=== PATIENT | female | born 1985 | race Caucasian/White ===

== ENCOUNTER 2016-12-29 13:52 | Day surgery (SDC) | payer OTHER ==
[2016-12-29 14:23] LABS: BASOPHIL 0.5 % (0-2.0); EOSINOPHIL 0.4 % (0-4.5); MCH 30.7 pg (25.7-33.7); MCHC 34.2 g/dl (32.0-36.0); MEAN CELL VOLUME 89.8 fl (80-96); MEAN PLT VOLUME 8.4 fl (7.5-11.1); NEUTROPHILS 72.1 % (42.8-82.8); PLATELET COUNT 234 K/MM3 (134-434); RDW 13.7 % (11.6-15.6); WHITE BLOOD COUNT 9.5 K/mm3 (4.0-10.0)
[2016-12-29 14:38] VITALS: BMI 26.8
[2016-12-29 15:16] LABS: INR 1.1 (0.82-1.09); PROTHROMBIN TIME (PATIENT) 12.1 SEC (9.98-11.88)
--- NOTE | 2016-12-29 16:45 | HP ---
Past Medical History - Primary Care Physician PCP:: Arlette Zhao - Admission Chief Complaint: p, 8.4/7 weeks [id number] yrs , 12.2 wekes by dates , co bleeding vaginally. since 12/26/16, light, sometimes passed small blood clots . no Cramps. sono done on 12/28/16 is reported as SIUP 8.4/7 weeks, , pole seen without cardiac activity . cx is 3.35 cm History of Present Illness: pnc at [address] [place] [address] . work up on 12/17/16 : O Pos,Rpr nr, , Hgb A1A2 , Hbsag neg, Rubella immune, Cf neg, Hiv nr. 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 Weeks Gestation by Dates: 12.2 ...EDC by Dates: 07/11/17 Heme/Onc: No: Anemia Infectious Disease: No: HIV, MRSA, STD's Psych: No: Addictions, Anxiety, Bipolar, Depression - Past Surgical History Past Surgical History: Yes: None Hx Myomectomy: No Hx Transabdominal Cerclage: No - Smoking History Smoking history: Never smoked Have you smoked in the past 12 months: No - Alcohol/Substance Use Hx Alcohol Use: No History of Substance Use: reports: None - Social History History of Recent Travel: No Home Medications - Allergies Allergies/Adverse Reactions: Allergies Allergy/AdvReac Type Severity Reaction Status Date / Time No Known Drug Allergies Allergy Verified 12/29/16 14:53 - Home Medications Home Medications: Ambulatory Orders Iron 18 mg PO DAILY 12/29/16 Vit/Iron Fumarate/FA [ Tablet] 1 each PO DAILY 12/29/16 Physical Exam - Maternity Vital Signs: Vital Signs Temperature 98.3 F 12/29/16 14:56 Pulse Rate 100 H 12/29/16 14:56 Respiratory Rate 20 12/29/16 14:56 Blood Pressure 123/70 12/29/16 14:56 O2 Sat by Pulse Oximetry (%) 99 12/29/16 14:55 Constitutional: Yes: Well Nourished, Other (upset) Eyes: Yes: WNL HENT: Yes: WNL, Normocephalic Neck: Yes: WNL Cardiovascular: Yes: WNL Lungs: Clear to auscultation Breast(s): Yes: WNL - Abdominal Exam/OB Fundal Height: 8 Number of Fetuses: Single - Vaginal Exam/OB Vaginal Bleediing: Light Dilatation (cm): close Effacement (%): unefface - Physical Exam Musculoskeletal: Yes: WNL Extremities: Yes: WNL. No: Calf Tenderness Edema: No Integumentary: Yes: WNL Deep Tendon Reflex Grade: Normal +2 ...Motor Strength: WNL Psychiatric: Yes: WNL, Alert, Oriented - Labs Lab Results: CBC, BMP 12/29/16 14:14 Laboratory Tests 12/29/16 14:14 Blood Type O POSITIVE Laboratory Tests 12/29/16 14:14 INR 1.10 Problem List - Problems (1) Missed Code(s): O02.1 - MISSED (2) with 12 completed weeks gestation Code(s): Z3A.12 - 12 WEEKS GESTATION OF Assessment/Plan 31 yrs , 12.2 weeks by dates, 8.4 weeks by sono non viable foetus (absent FHR ) on sono is admitted for Dilatation suction curretage under GA.
[2016-12-29] MEDS ORDERED: PROPOFOL 20 ML ONE (17:32)
[2016-12-29] MEDS ORDERED: MIDAZOLAM HCL 2 MG/2 ML SINGLE DOSE VIAL ONE (17:32)
[2016-12-29] MEDS ORDERED: OXYTOCIN 10 UNITS/ML VIAL ONE (17:42)
[2016-12-29] MEDS ORDERED: SILVER NITRATE 75% APPLIC STCK 1 PKT EACH TP ONE ×2 (17:54)
--- NOTE | 2016-12-29 18:05 | OP ---
Operative Note - Note: Operative Date: 12/29/16 Pre-Operative Diagnosis: missed (1st trimester) Operation: Dilatation Suction Curretage Findings: Ut 8 weeks size, AV, uterocervical length 9cm 9#suction canula was used to aspirate iu contents . cx post , os was closed adnexa was quill collector Surgeon: Arlette Zhao Anesthesiologist/MEDICAL ASSOCIATE: Tito Barcenas Anesthesia: General Specimens Removed: uterine contents Estimated Blood Loss (mls): 50 Fluid Volume Replaced (mls): 500 (RL Solution, Pitocin 20 Iu was used ) Operative Report Dictated: Yes
[2016-12-29] MEDS ORDERED: ONDANSETRON 4 MG/2 ML VIAL IVPUSH PRN (18:11)
[2016-12-29] MEDS ORDERED: oxyCODONE HCL 5 MG TABLET PO PRN (18:11)
[2016-12-29] MEDS ORDERED: IBUPROFEN 400 MG TABLET (FP) PO PRN (18:12)
[2016-12-29] MEDS ORDERED: ACETAMINOPHEN 325 MG TABLET (FP) PO PRN (18:12)
[2016-12-29] MEDS ORDERED: LACTATED RINGERS SOLUTION 1,000 ML IV SCH (18:15)
[2016-12-29 18:51] VITALS: TEMP 98
[2016-12-29 19:50] VITALS: BP 106/60; PULSE 80
--- NOTE | 2016-12-31 12:29 | PATH ---
Surgical Pathology Report Patient Name: SERVANDO KING [facility]. Rec. #: [id number] /Age/Gender: 1985 (Age: 31) / F Account: [id number] Location: AMBULATORY SURG Taken: 12/29/2016 Received: 12/30/2016 Reported: 12/31/2016 Physicians: Arlette Zhao M.D. Specimen(s) Received UTERINE CONTENTS Clinical History Missed first trimester Final Diagnosis PRODUCTS OF CONCEPTION: NO SOMATIC TISSUE IDENTIFIED. CHORIONIC VILLUS TISSUE PRESENT. FRAGMENTS OF DECIDUA. Electronically Signed Josué Faustin M.D. Gross Description Received in formalin labeled "contents of conception" is a 7.5 x 5.5 x 1.8 cm aggregate of almeida soft tissue fragments. Villous tissue is grossly identified. No somatic tissue is grossly identified. A telemarketing representative portion is submitted in one cassette. /12/30/201612/30/2016
--- NOTE | 2017-01-07 18:01 | OP ---
DATE OF OPERATION: 12/29/2016 OPERATION: Dilatation/suction curettage. PREOPERATIVE DIAGNOSIS: Missed , 12.2 weeks' gestation. SURGEON: Arlette Zhao MD ANESTHESIOLOGIST: Teressa Barcenas MD ANESTHESIA: General. FINDINGS: This is a 31-year-old 1, para 0, LMP on October 04, 2016, 12.2 weeks' gestation. Had been having severe bleeding since December 26, 2016. On December 28, 2016, a sonogram reported as 8.4 weeks with absent heart and with a pole seen. PROCEDURE: Patient was taken to the operating room table and general anesthesia was given. Patient was placed in the lithotomy position. Pubis, perineum, vagina were painted with a Betadine prep in usual manner. Pelvic examination was done. Uterus was anteverted, 8 weeks' size. Cervix was posterior. Adnexa was not palpable. A weighted speculum was placed anteriorly. The cervix was grasped with a single-toothed tenaculum and dilated up to a number 10 dilator. A number 9 curved cannula was used and the uterine contents were aspirated out until no more tissue was obtained. The cannula was then removed. The uterine cavity was curetted and sent for pathologic examination. The curetting was done until a gritty sensation was felt. All the instruments were removed, and the bleeding point from the tenaculum by site. Hemostasis was achieved by using silver nitrate cautery. Estimated blood loss was 50 mL. Patient tolerated the procedure well and was transferred to the recovery room in stable condition. Her blood type is O+. Nila HONG/[id number]
== END 2016-12-29 19:51 | disposition home or self-care (01) ==
LOC: JASU-SURG 13:52 → JASUSAT 13:52
PROVIDERS: ATTEND Obstetrics & Gynecology
PROC: 10D17ZZ Extraction of Products of Conception, Retained, Via Natural or Artificial Opening (ICD-10-PCS; principal; 2016-12-29 16:00)
DX: O02.1 Missed abortion (principal); Z3A.08 8 weeks gestation of pregnancy
CPT/HCPCS: 36415; 85025; 85610; 86850; 86900; 86901; 88305-TC; 94760

== ENCOUNTER 2018-04-21 15:18 | Emergency (ER) | payer OTHER ==
--- NOTE | 2018-04-21 15:24 | PDOC ---
Rapid Medical Evaluation Time Seen by Provider: 04/21/18 15:20 Medical Evaluation: Allergies Allergy/AdvReac Type Severity Reaction Status Date / Time No Known Drug Allergies Allergy Verified 12/29/16 14:53 04/21/18 15:20 Pt. presents to the ED for vaginal bleeding, currently 10 weeks . , LMP 02/04/18. States the bleeding started today and she noticed a little light blood on the toilet paper. No clots. Also admits to back pain. Denies fever, chills, n/v/d, frequency, urgency and hematuria Exam: AAOx3, ambulatory. abdomen soft nt, no rebound or guarding. Orders: Labs, Urine, US Pt to proceed to main ED for further evaluation. Discharge Disposition - Diagnosis Vaginal bleeding - Referrals - Patient Instructions - Post Discharge Activity
[2018-04-21 15:25] VITALS: BP 125/59; PULSE 86; TEMP 98.6; BMI 29.9
[2018-04-21 15:46] LABS: BASO % 0.3 % (0-2.0); EOS % 0.2 % (0-4.5); HEMATOCRIT 37.6 % (32.4-45.2); LYMPH % 19.6 % (8-40); MCH 30.3 pg (25.7-33.7); MCHC 34.6 g/dl (32.0-36.0); MEAN CELL VOLUME 87.5 fl (80-96); MEAN PLT VOLUME 9.6 fl (7.5-11.1); MONO % 7.3 % (3.8-10.2); NEUT % 72.6 % (42.8-82.8); PLATELET COUNT 230 K/MM3 (134-434); RDW 13.7 % (11.6-15.6); URINE APPEARANCE SLCLOUDY; URINE BILIRUBIN NEGATIVE (<2.0 mg/dL); URINE GLUCOSE (UA) NEGATIVE (NEGATIVE); URINE KETONE 1+ (NEGATIVE); URINE LEUK ESTERASE NEGATIVE (NEGATIVE); URINE NITRITE NEGATIVE (NEGATIVE); URINE PROTEIN NEGATIVE (NEGATIVE); WHITE BLOOD COUNT 8.3 K/mm3 (4.0-10.0)
[2018-04-21 15:52] LABS: URINE COLOR YELLOW
--- NOTE | 2018-04-21 16:47 | PDOC ---
Attending Attestation - HPI HPI: 04/21/18 17:06 The patient is a 32 year old female who is A1 who presents to the ED complaining of a small amount of vaginal bleeding this morning. States she noticed a small amount of blood while urinating when she wiped. She also reports nausea with vomitinig x 2 today but is able to tolerate fluids. Denies appearance of clots. She denies suprapubic cramping. She denies fever or chills. States her symptoms feel similar to previous miscarriage. - Physicial Exam PE: 04/21/18 17:16 Constitutional: Awake, alert, oriented. No acute distress. Head: Normocephalic. Atraumatic Eyes: PERRL. EOMI. Conjunctivae are not pale. ENT: Mucous membranes are moist and intact. Posterior pharynx without exudates or erythema. Uvula midline. Neck: Supple. Full ROM. No lymphadenopathy. Cardiovascular: Regular rate. Regular rhythm. S1, S2 regular. Distal pulses are 2+ and symmetric. Pulmonary/Chest: No evidence of respiratory distress. Clear to auscultation bilaterally No wheezing, rales or rhonchi. Abdominal: Soft and non-distended. There is no tenderness. No rebound, guarding or rigidity. No organomegaly. No palpable masses. Good bowel sounds. Back: No CVA tenderness. Musculoskeletal: No edema. No cyanosis. No clubbing. Full range of motion in all extremities. Nocalf tenderness. Radial/pedal pulses are intact and 2+ bilaterally Skin: Skin is warm and dry. No petechiae. No purpura. Neurological: Alert and oriented to person, place, and time. Cranial nerves II -XII are grossly intact. Normal speech. Strength is grossly symmetric. No sensory deficits. Psychiatric: Good eye contact. Normal interaction, affect and behavior. Pelvic exam: Agree with resident note Documentation prepared by Parul Washington, acting as medical lab technologist for Abimbola Blanca DO. <Parul Washington - Last Filed: 04/21/18 17:06> - Resident Resident Name: Gadiel Campbell - ED Attending Attestation I have performed the following: I have examined & evaluated the patient, The case was reviewed & discussed with the resident, I agree w/resident's findings & plan, Exceptions are as noted - Medical Decision Making 04/21/18 16:46 I, Dr. Abimbola Blanca, DO, attest that this document has been prepared under my direction and personally reviewed by me in its entirety. I further attest, that it accurately reflects all work, treatment, procedures and medical decision -making performed by me. 04/21/18 18:46 a/p: 32yo female with vaginal spotting today - at 10 weeks -no active bleeding, blood on tissue when she wiped earlier today -no cramping -has not had a us with this preg -miscarriage a year ago (spontaneous) at 8 weeks -will send labs, type and screen, tv us -concern for threatened ab vs bleeding in early preg 04/22/18 00:24 10week IUP on ultrasound 04/22/18 00:24 O+ stable for d/c to home <Abimbola Blanca - Last Filed: 04/22/18 00:24>
[2018-04-21] MEDS ORDERED: ONDANSETRON 4 MG TABLET PO ONE (17:37)
--- NOTE | 2018-04-21 17:43 | PDOC ---
History of Present Illness - General Chief Complaint: Vaginal Bleeding Stated Complaint: BACK PAIN, BLEEDING (10 WKS ) Time Seen by Provider: 04/21/18 15:20 History Source: Patient Exam Limitations: No Limitations - History of Present Illness Initial Comments: 04/21/18 17:37 Patient is a 32F who is 10wks here today complaining of vaginal bleeding. She states that after urinating, she noticed a small amount of blood whens he wiped with tissue paper. She endorses associated nausea that has complicated her so far. Denies abdominal pain, fevers, chills and pain with urination. Patient states that she has not had ultrasound yet for this and is concerned that she is having another miscarriage. Past History - Past Medical History Allergies/Adverse Reactions: Allergies Allergy/AdvReac Type Severity Reaction Status Date / Time No Known Drug Allergies Allergy Verified 04/21/18 15:22 Home Medications: Ambulatory Orders Ibuprofen [Motrin -] 400 mg PO TID #30 tablet 12/29/16 Iron 18 mg PO DAILY 12/29/16 Vit/Iron Fum/Folic AC [ Tablet] 1 each PO DAILY 12/29/16 COPD: No - Suicide/Smoking/Psychosocial Hx Smoking History: Never smoked Have you smoked in the past 12 months: No Hx Alcohol Use: No Drug/Substance Use Hx: No Substance Use Type: None Hx Substance Use Treatment: No Review of Systems - Review of Systems Comments:: 04/21/18 17:39 GENERAL/CONSTITUTIONAL: No fever or chills. No weakness. HEAD, EYES, EARS, NOSE AND THROAT: No change in vision. No sore throat. CARDIOVASCULAR: No chest pain or shortness of breath RESPIRATORY: No cough, wheezing, or hemoptysis. GASTROINTESTINAL: No nausea, vomiting, diarrhea or constipation. GENITOURINARY: No dysuria, frequency, or change in urination. MUSCULOSKELETAL: No joint or muscle swelling or pain. No neck or back pain. SKIN: No rash NEUROLOGIC: No headache, vertigo, loss of consciousness, or change in strength/ sensation. ENDOCRINE: No increased thirst. No abnormal weight change HEMATOLOGIC/LYMPHATIC: No anemia, easy bleeding, or history of blood clots. ALLERGIC/IMMUNOLOGIC: No hives or skin allergy. *Physical Exam - Vital Signs Last Vital Signs Temp Pulse Resp BP Pulse Ox 98.6 F 86 16 125/59 100 07/26/18 15:22 04/21/18 15:22 04/21/18 15:22 04/21/18 15:22 04/21/18 15:22 - Physical Exam Comments: 04/21/18 17:39 GENERAL: Awake, alert, and fully oriented, in no acute distress HEAD: No signs of trauma, normocephalic, atraumatic EYES: PERRLA, EOMI, sclera anicteric, conjunctiva clear ENT: Auricles normal inspection, hearing grossly normal, nares patent, oropharynx clear without exudates. Moist mucosa NECK: Normal ROM, supple, no lymphadenopathy, JVD, or masses LUNGS: No distress, speaks full sentences, clear to auscultation bilaterally HEART: Regular rate and rhythm, normal S1 and S2, no murmurs, rubs or gallops, peripheral pulses normal and equal bilaterally. ABDOMEN: Soft, nontender, normoactive bowel sounds. No guarding, no rebound. No masses EXTREMITIES: Normal inspection, Normal range of motion, no edema. No clubbing or cyanosis. NEUROLOGICAL: Cranial nerves II through XII grossly intact. Normal speech, normal gait, no focal sensorimotor deficits SKIN: Warm, Dry, normal turgor, no rashes or lesions noted. ED Treatment Course - LABORATORY CBC & Chemistry Diagram: 04/21/18 15:37 - ADDITIONAL ORDERS Additional order review: Laboratory Results 04/21/18 04/21/18 04/21/18 15:37 15:37 15:37 Beta HCG, Quant 53866.8 Urine Color Yellow Urine Appearance Slcloudy Urine pH 5.0 Ur Specific [place] 1.023 Urine Protein Negative Urine Glucose (UA) Negative Urine Ketones 1+ H Urine Blood Negative Urine Nitrite Negative Urine Bilirubin Negative Urine Urobilinogen 2.0 H Ur Leukocyte Esterase Negative Blood Type O POSITIVE Antibody Screen Negative 04/21/18 15:37 RBC 4.30 MCV 87.5 MCHC 34.6 RDW 13.7 MPV 9.6 D Neutrophils % 72.6 Lymphocytes % 19.6 Monocytes % 7.3 Eosinophils % 0.2 Basophils % 0.3 Medical Decision Making - Medical Decision Making 04/21/18 17:39 Patient is 32F at 10 wks here today complaining of vaginal bleeding. Vital signs normal and stable. Pelvic deferred due to small amount of bleeding and no other pelvic complaints. Will rule out ectopic, rule out need for rhogam, establish . 04/21/18 17:43 Laboratory Tests 04/21/18 04/21/18 04/21/18 15:37 15:37 15:37 WBC 8.3 Hgb 13.0 Plt Count 230 Beta HCG, Quant 94609.8 Urine Nitrite Negative Ur Leukocyte Esterase Negative CBC normal. Beta quant positive. UA negative for infection. 04/21/18 17:43 O+, no rhogam needed. *DC/Admit/Observation/Transfer Diagnosis at time of Disposition: Vaginal bleeding, Threatened - Discharge Dispostion Disposition: HOME Condition at time of disposition: Good Decision to Admit order: No - Referrals - Patient Instructions Printed Discharge Instructions: DI for Threatened Additional Instructions: Please return to the ED in 2 days for repeat blood test. Please return to the ED if you have any new, worsening or concerning symptoms. Please follow up with your OBGYN in the next week. Print Language: MALAGASY - Post Discharge Activity
[2018-04-21] MEDS ORDERED: ONDANSETRON *ODT* 4 MG TABLET ONE (19:31)
== END 2018-04-21 19:35 | disposition home or self-care (01) ==
LOC: JER 15:18
DX: O26.891 Other specified pregnancy related conditions, first trimester (principal); O20.0 Threatened abortion; Z3A.10 10 weeks gestation of pregnancy
CPT/HCPCS: 36415; 76817-TC; 81003; 84702; 85025; 86850; 86900; 86901; 87086; 99283-25

== ENCOUNTER 2018-04-23 09:20 | Emergency (ER) | payer OTHER ==
[2018-04-23 09:28] VITALS: BP 101/59; PULSE 79; TEMP 98.5; BMI 29.9
--- NOTE | 2018-04-23 10:36 | PDOC ---
History of Present Illness - General Chief Complaint: Revisit, Lab Variance Stated Complaint: REVISIT (BLOOD WORK) Time Seen by Provider: 04/23/18 09:36 History Source: Patient Exam Limitations: No Limitations - History of Present Illness Initial Comments: 04/23/18 10:31 32 yr female here for repeat beta HCG, seen 2 days ago in ER . transvaginal showed conformed IUP with small subchorionic bleed. Pt has no bleeding or pain today. 04/23/18 10:34 Past History - Past Medical History Allergies/Adverse Reactions: Allergies Allergy/AdvReac Type Severity Reaction Status Date / Time No Known Drug Allergies Allergy Verified 04/23/18 09:28 Home Medications: Ambulatory Orders Ibuprofen [Motrin -] 400 mg PO TID #30 tablet 12/29/16 Iron 18 mg PO DAILY 12/29/16 Vit/Iron Fum/Folic AC [ Tablet] 1 each PO DAILY 12/29/16 COPD: No - Suicide/Smoking/Psychosocial Hx Smoking History: Never smoked Have you smoked in the past 12 months: No Hx Alcohol Use: No Drug/Substance Use Hx: No Substance Use Type: None Hx Substance Use Treatment: No Review of Systems - Review of Systems Able to Perform ROS?: Yes Is the patient limited Czech proficient: Yes Constitutional: No: Symptoms Reported HEENTM: No: Symptoms Reported Respiratory: No: Symptoms reported Cardiac (ROS): No: Symptoms Reported ABD/GI: No: Symptoms Reported : No: Symptoms Reported Musculoskeletal: No: Symptoms Reported *Physical Exam - Vital Signs Last Vital Signs Temp Pulse Resp BP Pulse Ox 98.5 F 79 18 101/59 99 04/23/18 09:25 04/23/18 09:25 04/23/18 09:25 04/23/18 09:25 04/23/18 09:25 - Physical Exam General Appearance: Yes: Nourished, Appropriately Dressed HEENT: positive: EOMI, TERESA Female Pelvic Exam: positive: other (deferred ) Gastrointestinal/Abdominal: positive: Normal Bowel Sounds, Soft. 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 II-XII NML intact, Fully Oriented, Alert, Normal Mood/ Affect ED Treatment Course - ADDITIONAL ORDERS Additional order review: Laboratory Results 04/23/18 09:37 Beta HCG, Quant 00885.8 Medical Decision Making - Medical Decision Making 04/23/18 10:38 cc: here for repeat beta HCG pt has no bleeding, no spotting no abd pain pt has appointment with truck terminal manager Coral on Wednesday for follow up I have given the pateint a copy of [facility] lab work to bring with her (she has copies of US and blood form last visit with her) I have discussed in detail the dc inst and when to return to ER to her and her partner who translated, the BASIM Mercer translated as well. all questions asked and answered at discharge. pt stable. *DC/Admit/Observation/Transfer Diagnosis at time of Disposition: Early stage of - Discharge Dispostion Disposition: HOME Condition at time of disposition: Good - Referrals - Patient Instructions Additional Instructions: follow with your shipping specialist on Wednesday as planned bring copies of [facility] blood work with you return to ER for any heavy bleeding severe pain or any other concerns - Post Discharge Activity
== END 2018-04-23 10:40 | disposition home or self-care (01) ==
LOC: JERFT 09:20
DX: O26.891 Other specified pregnancy related conditions, first trimester (principal); O36.80X0 Pregnancy with inconclusive fetal viability, not applicable or unspecified; Z3A.10 10 weeks gestation of pregnancy
CPT/HCPCS: 36415; 84702; 99281-25

== ENCOUNTER 2018-11-11 01:50 | Inpatient (IN) | payer OTHER ==
[~2018-11-11 01:50] MED LIST: ELECTROLYTE-148 SOLN 1,000 ML IV SCH
[2018-11-11 02:36] LABS: BASO % 0.2 % (0-2.0); EOS % 0.6 % (0-4.5); HEMATOCRIT 36.3 % (32.4-45.2); HEMOGLOBIN 12.8 GM/dL (10.7-15.3); LYMPH % 21.5 % (8-40); MCHC 35.4 g/dl (32.0-36.0); MEAN CELL VOLUME 90.5 fl (80-96); MEAN PLT VOLUME 10.8 fl (7.5-11.1); MONO % 8.6 % (3.8-10.2); NEUT % 69.1 % (42.8-82.8); PLATELET COUNT 164 K/MM3 (134-434); RBC 4.01 M/mm3 (3.60-5.2); RDW 13.5 % (11.6-15.6); WHITE BLOOD COUNT 8.5 K/mm3 (4.0-10.0)
[2018-11-11 02:49] VITALS: BMI 32.8
[2018-11-11 02:53] LABS: INR 0.9 (0.83-1.09); PROTHROMBIN TIME (PATIENT) 10.6 SEC (9.7-13.0)
[2018-11-11 02:55] LABS: ACTIVATED PTT 26.4 SECONDS (25.2-36.5)
[2018-11-11 02:58] LABS: ANION GAP 9 MMOL/L (8-16); BLOOD UREA NITROGEN 12 mg/dL (7-18); CALCIUM 8.7 mg/dL (8.5-10.1); CHLORIDE 107 mmol/L (98-107); CO2 21 mmol/L (21-32); CREATININE 0.6 mg/dL (0.55-1.3); GLUCOSE,RANDOM 87 mg/dL (74-106); POTASSIUM 3.9 mmol/L (3.5-5.1); SODIUM 136 mmol/L (136-145)
[2018-11-11] MEDS ORDERED: OXYTOCIN 30 UNITS in 0.9% NS 30 UNIT/500 ML INFUS.BAG IVPB SCH ×2 (03:30→03:45)
[2018-11-11] MEDS ORDERED: BUTORPHANOL TARTRATE 1 MG/ML VIAL IVPUSH ONE (03:32)
[2018-11-11] MEDS ORDERED: PROMETHAZINE HCL 25 MG/1 ML VIAL IVPUSH ONE (03:32)
--- NOTE | 2018-11-11 03:32 | PN ---
Progress Note (short form) - Note Progress Note: SROM since 6 pm 11/10/18, irregular contraction , cx 1 cm 70 vx -3 mr, fhr cat 1, BS 87 pitocin RBA discussed agreed
[2018-11-11] MEDS ORDERED: OXYTOCIN 20 UNITS in 0.9% NS 20 UNIT/1,000 ML INFUS.BAG IV ONE (03:40)
--- NOTE | 2018-11-11 03:43 | HP ---
Past Medical History - Primary Care Physician PCP:: Vladimir Oscar - Admission Chief Complaint: 39.4 weeks, prom History of Present Illness: 33 yo f g 2 p0010 39.4 weeks, c/o SROM since 6 pm 11/10/17 , has mild cramps, no bleeding , no fever, cx 1 cm 70 vx -3 mr, clear, fhr cat 1, irregular contraction. hx of GDM, diet controlled, EFW 8 lb History Source: Patient Limitations to Obtaining History: No Limitations - Past Medical History ...: 2 ...Para: 0 ...Term: 0 ...: 0 ...Spon : 1 ...Induced : 0 ...Multiple Gestation: 0 ...LMP: 02/04/18 ... Weeks Gestation by Dates: 40.0 ...EDC by Dates: 11/11/18 ...EDC by Sono: 11/14/18 Endocrine: Yes: Diabetes Mellitus (diet controlled) - Past Surgical History Past Surgical History: Yes: None Hx Myomectomy: No Hx Transabdominal Cerclage: No - Smoking History Smoking history: Never smoked Have you smoked in the past 12 months: No - Alcohol/Substance Use Hx Alcohol Use: No History of Substance Use: reports: None - Social History Usual Living Arrangement: Yes: With Spouse History of Recent Travel: No Home Medications - Allergies Allergies/Adverse Reactions: Allergies Allergy/AdvReac Type Severity Reaction Status Date / Time No Known Drug Allergies Allergy Verified 11/11/18 02:14 - Home Medications Home Medications: Ambulatory Orders Iron 18 mg PO DAILY 12/29/16 Vit/Iron Fum/Folic AC [ Tablet] 1 each PO DAILY 12/29/16 Review of Systems - Review of Systems Constitutional: reports: No Symptoms Eyes: reports: No Symptoms HENT: reports: No Symptoms Neck: reports: No Symptoms Cardiovascular: reports: No Symptoms Respiratory: reports: No Symptoms Gastrointestinal: reports: No Symptoms Genitourinary: reports: No Symptoms Breasts: reports: No Symptoms Reported Musculoskeletal: reports: No Symptoms Integumentary: reports: No Symptoms Neurological: reports: No Symptoms Endocrine: reports: No Symptoms Hematology/Lymphatic: reports: No Symptoms Psychiatric: reports: No Symptoms Physical Exam - Maternity Vital Signs: Vital Signs Temperature 98.1 F 11/11/18 02:42 Pulse Rate 91 H 11/11/18 02:42 Respiratory Rate 20 11/11/18 02:42 Blood Pressure 111/63 11/11/18 02:42 O2 Sat by Pulse Oximetry (%) Constitutional: Yes: Well Nourished, No Distress, Calm Eyes: Yes: WNL, Conjunctiva Clear, EOM Intact HENT: Yes: WNL, Atraumatic, Normocephalic Neck: Yes: WNL, Supple, Trachea Midline Cardiovascular: Yes: WNL, Regular Rate and Rhythm Breast(s): Yes: WNL - Abdominal Exam/OB Fundal Height: 40 Number of Fetuses: Single Presentation: Vertex Contractions: Yes Regularity: Irregular Intensity: Mild Monitor Mode: External Heart Rate Location: [facility] Category: I Accelerations: Uniform Decelerations: None - Vaginal Exam/OB Vaginal Bleediing: No Speculum Exam: No Dilatation (cm): 1 Effacement (%): 70 Amniotic Membrane Status: Ruptured Nitrazine Test: Positive Amniotic Fluid: Yes: Clear Presentation: Vertex/Position Station: -3 - Physical Exam Musculoskeletal: Yes: WNL Extremities: Yes: WNL Edema: Yes Edema: LLE: Trace, RLE: Trace Deep Tendon Reflex Grade: Normal +2 ...Motor Strength: WNL Psychiatric: Yes: WNL - Labs Lab Results: CBC, BMP 11/11/18 02:15 11/11/18 02:15 Hemorrhage Risk Assessment - Risk Factors Medium Risk Factors: Yes: None High Risk Factors: Yes: None Risk Score: 1 Risk Level: Medium Risk Problem List - Problems (1) with 39 completed weeks gestation Code(s): Z3A.39 - 39 WEEKS GESTATION OF (2) Gestational diabetes Code(s): O24.419 - GESTATIONAL DIABETES MELLITUS IN , UNSP CONTROL Qualifiers: Gestational diabetes mellitus control: diet-controlled Trimester: third trimester Qualified Code(s): O24.410 - Gestational diabetes mellitus in , diet controlled (3) Premature labor with rupture of membranes in third trimester Code(s): O42.913 - PRETRM OSMAR ROM, UNSP TIME BETW RUPT AND ONST LABR, 3RD TRI Assessment/Plan admit BGM FHM irregular conraction with PROM , pitocin rba discused , agreed to have pitocin
[2018-11-11] MEDS ORDERED: TUBERCULIN PPD 5 TU/0.1ML SYRINGE (IN PATIENT USE ONLY) ID ONE (06:30)
[2018-11-11] MEDS ORDERED: AMPICILLIN SODIUM 2 GM VIAL ONE (09:29)
[2018-11-11] MEDS ORDERED: AMPICILLIN - 2 GM in SODIUM CHLORIDE 100 ML IVPB ONE (10:00)
[2018-11-11] MEDS ORDERED: AMPICILLIN SODIUM 1 GM VIAL ONE ×3 (13:54→22:20)
[2018-11-11] MEDS: AMPICILLIN - 1 GM in SODIUM CHLORIDE 100 ML IVPB SCH ×3 (14:00→22:00)
--- NOTE | 2018-11-11 14:15 | PN ---
Progress Note (short form) - Note Progress Note: cx 4 cm 80 vx -2 mr, fhr cat1 regular contraction BGM 83 at 815 bgm 71 Problem List - Problems (1) with 39 completed weeks gestation Code(s): Z3A.39 - 39 WEEKS GESTATION OF (2) Gestational diabetes Code(s): O24.419 - GESTATIONAL DIABETES MELLITUS IN , UNSP CONTROL Qualifiers: Gestational diabetes mellitus control: diet-controlled Trimester: third trimester Qualified Code(s): O24.410 - Gestational diabetes mellitus in , diet controlled (3) Premature labor with rupture of membranes in third trimester Code(s): O42.913 - PRETRM OSMAR ROM, UNSP TIME BETW RUPT AND ONST LABR, 3RD TRI
[2018-11-11] MEDS ORDERED: FENTANYL/BUPIVACAINE/NS/PF - PCEA - 50 ML DISP.SYRIN EP ONE ×2 (14:21→19:04)
[2018-11-11] MEDS ORDERED: BUPIVACAINE HCL/PF 0.25% (2.5MG/ML) 10 ML VIAL ONE (14:27)
[2018-11-11] MEDS ORDERED: FENTANYL/BUPIVACAINE/NS/PF - PCEA - 50 ML DISP.SYRIN EP SCH (14:45)
[2018-11-11] MEDS ORDERED: NALOXONE HCL 0.4 MG/ML VIAL IVPUSH PRN (14:50)
--- NOTE | 2018-11-11 22:34 | PN ---
Progress Note (short form) - Note Progress Note: cx 8 cm, vx -2 , Op, no changes in cervical for 4 hours , advised c/s for arrest of labor, prolonged ROM,, procedure risks and benfit explained Problem List - Problems (1) with 39 completed weeks gestation Code(s): Z3A.39 - 39 WEEKS GESTATION OF (2) Gestational diabetes Code(s): O24.419 - GESTATIONAL DIABETES MELLITUS IN , UNSP CONTROL Qualifiers: Gestational diabetes mellitus control: diet-controlled Trimester: third trimester Qualified Code(s): O24.410 - Gestational diabetes mellitus in , diet controlled (3) Premature labor with rupture of membranes in third trimester Code(s): O42.913 - PRETRM OSMAR ROM, UNSP TIME BETW RUPT AND ONST LABR, 3RD TRI
[2018-11-11] MEDS ORDERED: BENZOCAINE 28 GM HEMORRHOIDAL OINTMENT PR PRN (22:44)
[2018-11-11] MEDS ORDERED: diphenhydrAMINE HCL 25 MG CAPSULE (FP) PO PRN (22:44)
[2018-11-11] MEDS ORDERED: WITCH HAZEL 50% (TUCKS) 40 PAD/JAR PAD TP PRN (22:44)
[2018-11-11] MEDS ORDERED: CITRIC ACID/SODIUM CITRATE 30 ML UNIT-DOSE CUP PO ONE (22:44)
[2018-11-11] MEDS ORDERED: METHYLERGONOVINE MALEATE 0.2 MG/1 ML AMP IM PRN (22:44)
[2018-11-11] MEDS ORDERED: IBUPROFEN 800 MG/8 ML IJ IVPB PRN (22:44)
[2018-11-11] MEDS ORDERED: BENZOCAINE 20% 57 GM BOTTLE TP PRN (22:44)
[2018-11-11] MEDS ORDERED: oxyCODONE HCL 5 MG TABLET PO PRN ×2 (22:44)
[2018-11-11] MEDS ORDERED: OXYTOCIN 20 UNITS in 0.9% NS 20 UNIT/1,000 ML INFUS.BAG IV SCH (22:45)
[2018-11-11] MEDS ORDERED: LIDO 2%/EPI 1:200000 PRESRVFRE (20 ML SDVIAL) ONE (22:50)
[2018-11-11] MEDS ORDERED: OXYTOCIN 10 UNITS/ML VIAL ONE (23:12)
[2018-11-11] MEDS ORDERED: morphine SULFATE/Preservative Free 0.5 MG/ML (1cc Syringe) ONE ×8 (23:26)
[2018-11-11] MEDS ORDERED: MIDAZOLAM HCL 2 MG/2 ML SINGLE DOSE VIAL ONE (23:42)
[2018-11-11] MEDS ORDERED: KETOROLAC TROMETHAMINE 30 MG/1 ML VIAL ONE (23:44)
[2018-11-11] MEDS ORDERED: CEFAZOLIN 1 GM/D5W 1 GM/50 ML BAG IVPB SCH (23:45)
[2018-11-11] MEDS ORDERED: ONDANSETRON 4 MG/2 ML VIAL IVPUSH PRN (23:49)
[2018-11-11] MEDS ORDERED: morphine SULFATE/Preservative Free 0.5 MG/ML (1cc Syringe) EP ONE (23:49)
[2018-11-12] MEDS ORDERED: CEFAZOLIN 1 GM/D5W 1 GM/50 ML BAG IVPB SCH
[2018-11-12] MEDS ORDERED: OXYTOCIN 20 UNITS in 0.9% NS 20 UNIT/1,000 ML INFUS.BAG IV ONE (00:14)
[2018-11-12 00:54] LABS: ARTERIAL BLOOD GAS BASE EXCESS -5.2 meq/l (-2-2); ARTERIAL BLOOD GAS PCO2 42.7 mmHg (35-45); ARTERIAL BLOOD GAS pH 7.3 (7.35-7.45)
[2018-11-12 01:34] LABS: VENOUS PC02 56.5 mmHg (38-52); VENOUS PO2 20.6 mmHg (28-48)
[2018-11-12 01:37] LABS: VENOUS PH 7.24 (7.32-7.42)
[2018-11-12 01:39] LABS: ARTERIAL BLOOD GAS PO2 30.5 mmHg (80-100)
[2018-11-12 01:40] LABS: ARTERIAL BLD GAS O2 SATURATION 59.6 % (90-98.9)
[2018-11-12] MEDS: DEXTROSE 5%-LACTATED RINGERS 1,000 ML IV SCH ×2 (02:05→13:00)
[2018-11-12 07:23] LABS: BASO % 0.4 % (0-2.0); EOS % 0.1 % (0-4.5); HEMOGLOBIN 10.5 GM/dL (10.7-15.3); LYMPH % 17.8 % (8-40); MCH 31.8 pg (25.7-33.7); MCHC 35.1 g/dl (32.0-36.0); MEAN CELL VOLUME 90.7 fl (80-96); MEAN PLT VOLUME 10.2 fl (7.5-11.1); MONO % 8.5 % (3.8-10.2); NEUT % 73.2 % (42.8-82.8); PLATELET COUNT 142 K/MM3 (134-434); RDW 13.8 % (11.6-15.6)
--- NOTE | 2018-11-12 11:36 | PN ---
Progress Note (short form) - Note Progress Note: pod 1 s/p c/s ,doing well, comfortable coats clear urine CBC, BMP 11/12/18 06:56 11/11/18 02:15 Last Vital Signs Temp Pulse Resp BP Pulse Ox 98.7 F 80 18 105/53 L 98 11/12/18 07:20 11/12/18 07:20 11/12/18 11:00 11/12/18 07:20 11/12/18 00:45 abdomen soft, no distension, no cva incision dry, clean no calf tenderness lochia mild pod 1 afebrile, no active bleeding plan ambulate, advance diet , pain management DVT prophylaxisis Problem List - Problems (1) with 39 completed weeks gestation Code(s): Z3A.39 - 39 WEEKS GESTATION OF (2) Gestational diabetes Code(s): O24.419 - GESTATIONAL DIABETES MELLITUS IN , UNSP CONTROL Qualifiers: Gestational diabetes mellitus control: diet-controlled Trimester: third trimester Qualified Code(s): O24.410 - Gestational diabetes mellitus in , diet controlled (3) Premature labor with rupture of membranes in third trimester Code(s): O42.913 - PRETRM OSMAR ROM, UNSP TIME BETW RUPT AND ONST LABR, 3RD TRI
--- NOTE | 2018-11-12 11:55 | PN ---
Progress Note (short form) - Note Progress Note: POD #1 - s/p under epidural anesthesia with duramorph. VSS. Pt. doing well, resting comfortably in bed. No complaints. Good pain control. No apparent anesthetic complications noted. Continue current care.
[2018-11-12] MEDS: IBUPROFEN 600 MG TABLET (FP) PO PRN (18:54)
[2018-11-12] MEDS: ACETAMINOPHEN 325 MG TABLET (FP) PO PRN (18:56)
[2018-11-12] MEDS: SIMETHICONE 80 MG TAB.CHEW (FP) PO PRN (18:57)
[2018-11-12] MEDS ORDERED: BISACODYL 10 MG SUPP.RECT PR PRN (22:44)
[2018-11-13] MEDS: IBUPROFEN 600 MG TABLET (FP) PO PRN ×2 (04:10→15:30)
[2018-11-13] MEDS: ACETAMINOPHEN 325 MG TABLET (FP) PO PRN ×2 (04:10→15:32)
[2018-11-13] MEDS: SIMETHICONE 80 MG TAB.CHEW (FP) PO PRN (04:11)
--- NOTE | 2018-11-13 08:52 | PN ---
Progress Note (short form) - Note Progress Note: pod 2 , doing well, no c/o ,ambulating, voids ok, passing gas CBC, BMP 11/12/18 06:56 11/11/18 02:15 Last Vital Signs Temp Pulse Resp BP Pulse Ox 99 F 82 18 96/59 L 98 11/13/18 07:25 11/13/18 07:25 11/13/18 07:25 11/13/18 07:25 11/12/18 00:45 abdomen soft, no distension , no cva incision dry, clean no calf tenderness plan ambulate , cbc in am pain management Problem List - Problems (1) with 39 completed weeks gestation Code(s): Z3A.39 - 39 WEEKS GESTATION OF (2) Gestational diabetes Code(s): O24.419 - GESTATIONAL DIABETES MELLITUS IN , UNSP CONTROL Qualifiers: Gestational diabetes mellitus control: diet-controlled Trimester: third trimester Qualified Code(s): O24.410 - Gestational diabetes mellitus in , diet controlled (3) Premature labor with rupture of membranes in third trimester Code(s): O42.913 - PRETRM OSMAR ROM, UNSP TIME BETW RUPT AND ONST LABR, 3RD TRI
[2018-11-13] MEDS: ENOXAPARIN NA (PORCINE) 40 MG/0.4 ML DISP.SYRIN SQ SCH (09:21)
--- NOTE | 2018-11-13 09:26 | OP ---
DATE OF OPERATION: 11/11/2018 PREOPERATIVE DIAGNOSES: at 39 weeks, labor, failure to dilate. POSTOPERATIVE DIAGNOSES: at 39 weeks, labor, failure to dilate. PROCEDURE: Primary low segment transverse section. SURGEON: Vladimir Oscar MD GRAIN OPERATIONS MANAGER: BINDU Ramos ANESTHESIA: Epidural. ANESTHESIOLOGIST: Frank Kraus MD ESTIMATED BLOOD LOSS: 700 mL OPERATION: The patient was taken to the operating room. After adequate epidural anesthesia, the abdomen and perineum were prepped and draped. A Pfannenstiel abdominal skin incision was made. Abdomen was cut [id number] until the peritoneum was exposed and incised. Upon entering the abdominal cavity, the lower uterine segment was identified and established. Bladder was pushed down. Then, with the lower blade of the [place] retractor in the pelvis, a low transverse uterine incision was made. The incision extended laterally, amniotic sac was entered. Meconium amniotic fluid was noted. Head delivered from occiput posterior position, nasal sinuses were suctioned, and live baby was delivered without any difficulty. Apgars 9, 9. Placenta was delivered manually. Uterine cavity was cleaned of all the remaining tissue. Uterine incision was closed in 2 layers, 1st layer with 0 Biosyn continuous suture, the 2nd layer with 0 Biosyn imbricating the 1st layer. Bladder flap was closed with 0 Biosyn continuous suture. Both tubes and ovaries were checked, were normal. No active bleeding was seen. All the lap pad, sponge count, instrument count were correct. Then, peritoneum was closed with 0 Biosyn continuous suture. Muscles were brought together with interrupted suture of 0 Biosyn. Fascia was closed with 0 Biosyn continuous suture, subcutaneous fat with interrupted suture of 0 Biosyn, and the skin was closed with kelly. The patient tolerated the procedure well, left the OR in good condition. Nila [id number]
[2018-11-13] MEDS ORDERED: DIPHTH,PERTUSS(ACELL),TET 0.5 ML DISP.SYRIN IM ONE (10:00)
[2018-11-13] MEDS ORDERED: SENNOSIDES/DOCUSATE COMBO (SENNA PLUS) TABLET (UD) PO PRN (22:00)
[2018-11-14] MEDS: IBUPROFEN 600 MG TABLET (FP) PO PRN ×2 (00:40→09:41)
[2018-11-14] MEDS: SIMETHICONE 80 MG TAB.CHEW (FP) PO PRN ×2 (00:41→09:42)
[2018-11-14] MEDS: ACETAMINOPHEN 325 MG TABLET (FP) PO PRN ×2 (00:41→09:42)
--- NOTE | 2018-11-14 08:13 | PN ---
Progress Note (short form) - Note Progress Note: pod 3 . doing well, no c/o , had BM, voids ok CBC, BMP 11/12/18 06:56 11/11/18 02:15 Last Vital Signs Temp Pulse Resp BP Pulse Ox 98.0 F 86 20 106/69 98 11/13/18 21:52 11/13/18 21:52 11/13/18 21:52 11/13/18 21:52 11/12/18 00:45 abdomen soft, no distention , BS are present lochia mild, no vaginal discharge no calf tenderness plan ambulate cbc Problem List - Problems (1) with 39 completed weeks gestation Code(s): Z3A.39 - 39 WEEKS GESTATION OF (2) Gestational diabetes Code(s): O24.419 - GESTATIONAL DIABETES MELLITUS IN , UNSP CONTROL Qualifiers: Gestational diabetes mellitus control: diet-controlled Trimester: third trimester Qualified Code(s): O24.410 - Gestational diabetes mellitus in , diet controlled (3) Premature labor with rupture of membranes in third trimester Code(s): O42.913 - PRETRM OSMAR ROM, UNSP TIME BETW RUPT AND ONST LABR, 3RD TRI
[2018-11-14 08:37] VITALS: BP 115/65; PULSE 81; TEMP 98.3
[2018-11-14 08:47] LABS: BASO % 0.2 % (0-2.0); EOS % 1.3 % (0-4.5); HEMATOCRIT 28.7 % (32.4-45.2); HEMOGLOBIN 10.1 GM/dL (10.7-15.3); LYMPH % 14.4 % (8-40); MCH 32.2 pg (25.7-33.7); MCHC 35.1 g/dl (32.0-36.0); MEAN CELL VOLUME 91.9 fl (80-96); MEAN PLT VOLUME 9.8 fl (7.5-11.1); MONO % 7.7 % (3.8-10.2); NEUT % 76.4 % (42.8-82.8); PLATELET COUNT 187 K/MM3 (134-434); RBC 3.12 M/mm3 (3.60-5.2); RDW 14.3 % (11.6-15.6)
[2018-11-14] MEDS: ENOXAPARIN NA (PORCINE) 40 MG/0.4 ML DISP.SYRIN SQ SCH (09:35)
--- NOTE | 2018-11-14 10:38 | DS ---
Physical Exam-SPECIMEN TRANSPORTER Vital Signs: Vital Signs Temperature 98.3 F 11/14/18 07:50 Pulse Rate 81 11/14/18 07:50 Respiratory Rate 18 11/14/18 07:50 Blood Pressure 115/65 11/14/18 07:50 O2 Sat by Pulse Oximetry (%) 98 11/12/18 00:45 Constitutional: Yes: Well Nourished, No Distress, Calm Eyes: Yes: WNL, Conjunctiva Clear, EOM Intact HENT: Yes: WNL, Atraumatic, Normocephalic Neck: Yes: WNL, Supple, Trachea Midline Cardiovascular: Yes: WNL, Regular Rate and Rhythm Respiratory: Yes: WNL, Regular, CTA Bilaterally Gastrointestinal: Yes: WNL ...Rectal Exam: Yes: WNL Renal/: Yes: WNL External Genitalia: Yes: Normal Vaginal Exam: Yes: Normal ....Post : Yes: Uterus firm, Uterus non-tender, Slight lochia rubra Breast(s): Yes: WNL Musculoskeletal: Yes: WNL Extremities: Yes: WNL Edema: No Integumentary: Yes: WNL Wound/Incision: Yes: Clean/Dry, Well Approximated, Kelly Intact Neurological: Yes: WNL, Alert, Oriented ...Motor Strength: WNL Psychiatric: Yes: WNL, Alert, Oriented Labs: CBC, BMP 11/14/18 07:30 11/11/18 02:15 Delivery - Delivery Section: Primary, Low Flap Transverse (no complication) Type of Anesthesia: Epidural EBL (cc): 500 Delivery, Single - Stages of Labor Date 1st Stage Initiatied: 11/10/18 Time 1st Stage Initiated: 18:00 Date of Delivery: 11/11/18 Time of Delivery: 23:17 Time Placenta Delivered: 23:20 Placenta: Yes: Expressed - Condition of [employer]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 Present: No Infant Gender: Male Weight: 7 lb Position: OP Total Hours ROM (Hrs/Mins): 29h 17m - 1 Minute Total Score: 9 5 Minutes Total Score: 9 - [place] Feeding Plan Initial Plan: Elected not to breastfeed exclusively throughout hospitalization Discharge Summary Reason For Visit: LABOR ADMIT Current Active Problems Gestational diabetes (Acute) with 39 completed weeks gestation (Acute) Premature labor with rupture of membranes in third trimester (Acute) Procedures: Principal: Hospital Course: no complication - Instructions Diet, Activity, Other Instructions: regular diet, follow up [facility] 1 week for kelly removal - Home Medications Comprehensive Discharge Medication List: Ambulatory Orders Iron 18 mg PO DAILY 12/29/16 Vit/Iron Fum/Folic AC [ Tablet] 1 each PO DAILY 12/29/16 Ibuprofen [Motrin -] 600 mg PO TID PRN #30 tablet 11/14/18
--- NOTE | 2018-11-21 15:34 | PATH ---
Surgical Pathology Report Patient Name: SERVANDO KING [facility]. Rec. #: [id number] /Age/Gender: 1985 (Age: 33) / F Account: [id number] Location: [facility] OBS/MEDICAL ADMINISTRATIVE TECHNICIAN Taken: 11/11/2018 Received: 11/15/2018 Reported: 11/21/2018 Physicians: Vladimir Oscar M.D. Specimen(s) Received PLACENTA Clinical History GDM Prolonged rupture of membranes, failure to progress Final Diagnosis PLACENTA: THIRD TRIMESTER PLACENTA WITH FOCAL ACUTE CHORIOAMNIONITIS. TRIVASCULAR CORD. Electronically Signed Nunu Skelton M.D. Gross Description The specimen is received fresh labeled placenta and is a 481 gram, 16.5 x 15.0 x 2.3 cm. placenta with attached membranes and umbilical cord. The attached membranes are almeida, translucent with focal opacities and insert marginally. The umbilical cord measures 16 cm. in length and averages 1.1 cm. in diameter. The cord inserts eccentrically, 5.5 cm. to the nearest margin. No true knots or strictures are identified. Cut surface of the umbilical cord reveals 3 vessels. The surface is reese-blue with minimal fibrin deposition and appropriate caliber vessels. The maternal surface is red-brown with focal defects. Sectioning reveals red-brown, spongy parenchyma. No lesions are identified. Business Services Manager sections are submitted in three cassettes as follows: 1- membrane rolls and umbilical cord; 2-3- full thickness sections of placenta. 11/18/2018 [facility]11/18/2018
== END 2018-11-14 13:55 | disposition home or self-care (01) | DRG 540 ==
LOC: JLDR 01:50 → J3W 11-12 01:45
PROVIDERS: ADMIT Obstetrics & Gynecology; ATTEND Obstetrics & Gynecology
PROC: 10D00Z1 Extraction of Products of Conception, Low, Open Approach (ICD-10-PCS; principal; 2018-11-11)
DX: O42.02 Full-term premature rupture of membranes, onset of labor within 24 hours of rupture (principal); O62.0 Primary inadequate contractions; O24.410 Gestational diabetes mellitus in pregnancy, diet controlled; O62.1 Secondary uterine inertia; Z3A.39 39 weeks gestation of pregnancy; Z37.0 Single live birth
CPT/HCPCS: 36415; 36600; 80048; 82803; 82962; 85025; 85610; 85730; 86593; 86850; 86900; 86901; 87070; 87205; 88307-TC; 90715

== ENCOUNTER 2022-12-14 03:55 | Inpatient (IN) | payer OTHER ==
[2022-12-14 05:10] VITALS: BMI 34.0
[2022-12-14] MEDS ORDERED: ELECTROLYTE-148 SOLN 1,000 ML IV SCH (05:15)
[2022-12-14 05:40] LABS: CALCIUM 8.9 mg/dL (8.5-10.1)
[2022-12-14 05:44] LABS: CREATININE 0.5 mg/dL (0.55-1.3)
[2022-12-14 05:53] LABS: INR 0.98 (0.83-1.09); PROTHROMBIN TIME (PATIENT) 11.4 SEC (9.7-13.0)
[2022-12-14 05:55] LABS: ACTIVATED PTT 26.2 SECONDS (25.2-36.5)
[2022-12-14 06:20] LABS: BASO % 0.2 % (0-2.0); EOS % 0.5 % (0-4.5); HEMATOCRIT 33.6 % (32.4-45.2); HEMOGLOBIN 11.8 GM/dL (10.7-15.3); LYMPH % 15.1 % (8-40); MCH 30.5 pg (25.7-33.7); MCHC 35.1 g/dl (32.0-36.0); MEAN CELL VOLUME 86.7 fl (80-96); MEAN PLT VOLUME 9.9 fl (7.5-11.1); MONO % 7.6 % (3.8-10.2); NEUT % 76.6 % (42.8-82.8); PLATELET COUNT 228 10^3/uL (134-434); RBC 3.87 M/mm3 (3.60-5.2); RDW 14.6 % (11.6-15.6); WHITE BLOOD COUNT 10.1 K/mm3 (4.0-10.0)
[2022-12-14] MEDS ORDERED: FENTANYL/BUPIVACAINE/NS/PF - PCEA - 50 ML DISP.SYRIN EP ONE (09:58)
[2022-12-14] MEDS ORDERED: NALOXONE HCL 0.4 MG/ML VIAL IVPUSH PRN (10:57)
[2022-12-14] MEDS ORDERED: FENTANYL/BUPIVACAINE/NS/PF - PCEA - 50 ML DISP.SYRIN EP SCH (11:00)
[2022-12-14] MEDS ORDERED: OXYTOCIN 20 UNITS in 0.9% NS 20 UNIT/1,000 ML INFUS.BAG IV ONE (14:06)
[2022-12-14] MEDS ORDERED: OXYTOCIN 30 UNITS in 0.9% NS 30 UNIT/500 ML INFUS.BAG IVPB ONE (15:42)
[2022-12-14] MEDS ORDERED: OXYTOCIN 30 UNITS in 0.9% NS 30 UNIT/500 ML INFUS.BAG IVPB SCH (15:45)
[2022-12-14] MEDS ORDERED: FENTANYL CITRATE/PF 50 MCG/ML VIAL ONE ×2 (18:36→19:41)
[2022-12-14] MEDS ORDERED: BUPIVACAINE HCL/PF 0.25% (2.5MG/ML) 10 ML VIAL ONE ×2 (18:36→19:24)
[2022-12-14] MEDS ORDERED: ELECTROLYTE-148 SOLN 500 ML IV ONE (18:59)
[2022-12-14] MEDS ORDERED: AZITHROMYCIN IVPB 500 MG/250 ML BAG IVPB STA (18:59)
[2022-12-14] MEDS ORDERED: CITRIC ACID/SODIUM CITRATE 30 ML UNIT-DOSE CUP PO ONE (18:59)
[2022-12-14] MEDS ORDERED: ONDANSETRON 4 MG/2 ML VIAL ONE (19:32)
[2022-12-14] MEDS ORDERED: ceFAZolin SODIUM 1 GM VIAL ONE (19:46)
[2022-12-14] MEDS ORDERED: OXYTOCIN 10 UNITS/ML VIAL ONE ×2 (19:47→19:54)
[2022-12-14] MEDS ORDERED: morphine SULFATE/PF 1 MG/2 ML (2cc Syringe - QUVA) ONE (19:48)
[2022-12-14] MEDS ORDERED: ACETAMINOPHEN 325 MG TABLET (FP) PO PRN (20:34)
[2022-12-14] MEDS ORDERED: IBUPROFEN 600 MG TABLET (FP) PO PRN (20:34)
[2022-12-14 20:55] LABS: CORD BASE EXCESS -4.6 mmol/L (0-2); CORD HCO3 23.9 mmHg (20-29); CORD pH 7.233 (7.14-7.44)
[2022-12-14 20:58] LABS: CORD HCO3 24.8 mmHg (20-29); CORD PCO2 49.4 mmHg (30-78); CORD pH 7.319 (7.14-7.44)
[2022-12-14] MEDS ORDERED: ONDANSETRON 4 MG/2 ML VIAL IVPUSH PRN (20:58)
[2022-12-14] MEDS ORDERED: AZITHROMYCIN IVPB 500 MG/250 ML BAG IVPB ONE (21:26)
[2022-12-14] MEDS: OXYTOCIN 20 UNITS in 0.9% NS 20 UNIT/1,000 ML INFUS.BAG IV SCH (21:35)
[2022-12-15] MEDS ORDERED: METHYLERGONOVINE MALEATE 0.2 MG/1 ML AMP IM ONE (02:30)
[2022-12-15] MEDS: IBUPROFEN 800 MG/8 ML IJ IVPB PRN ×2 (03:00→12:53)
[2022-12-15 03:27] LABS: BASO % 0.4 % (0-2.0); HEMOGLOBIN 10.5 GM/dL (10.7-15.3); LYMPH % 10.5 % (8-40); MCH 29.7 pg (25.7-33.7); MEAN CELL VOLUME 87.5 fl (80-96); MONO % 6.4 % (3.8-10.2); NEUT % 82.7 % (42.8-82.8); PLATELET COUNT 208 10^3/uL (134-434); RBC 3.54 M/mm3 (3.60-5.2); RDW 14.6 % (11.6-15.6); WHITE BLOOD COUNT 14.7 K/mm3 (4.0-10.0)
[2022-12-15] MEDS: SIMETHICONE 80 MG TAB.CHEW (FP) PO PRN ×2 (06:38→22:48)
[2022-12-15] MEDS: METHYLERGONOVINE MALEATE 0.2 MG TABLET (FP) PO SCH ×5 (06:38→22:48)
[2022-12-15] MEDS: OXYTOCIN 20 UNITS in 0.9% NS 20 UNIT/1,000 ML INFUS.BAG IV SCH (06:45)
[2022-12-15] MEDS ORDERED: oxyCODONE HCL 5 MG TABLET PO PRN (08:34)
[2022-12-15] MEDS ORDERED: ceFAZolin 2 GRAM PREMIX BAG IVPB ONE (10:00)
[2022-12-15] MEDS ORDERED: CEFAZOLIN SODIUM 2 GM in DEXTROSE 5%-WATER 100 ML IVPB ONE (10:15)
[2022-12-15] MEDS ORDERED: BISACODYL 10 MG SUPP.RECT RC PRN (20:34)
[2022-12-16] MEDS: SIMETHICONE 80 MG TAB.CHEW (FP) PO PRN (02:17)
[2022-12-16 07:41] LABS: BASO % 0.1 % (0-2.0); EOS % 0.3 % (0-4.5); HEMATOCRIT 26.5 % (32.4-45.2); HEMOGLOBIN 9.2 GM/dL (10.7-15.3); LYMPH % 13.8 % (8-40); MCH 30.7 pg (25.7-33.7); MCHC 34.8 g/dl (32.0-36.0); MEAN PLT VOLUME 8.8 fl (7.5-11.1); MONO % 8.5 % (3.8-10.2); NEUT % 77.3 % (42.8-82.8); PLATELET COUNT 199 10^3/uL (134-434); RBC 3.01 M/mm3 (3.60-5.2); RDW 14.8 % (11.6-15.6); WHITE BLOOD COUNT 12.4 K/mm3 (4.0-10.0)
[2022-12-17 08:02] LABS: BASO % 0.2 % (0-2.0); EOS % 1.5 % (0-4.5); HEMATOCRIT 26.4 % (32.4-45.2); HEMOGLOBIN 9.1 GM/dL (10.7-15.3); LYMPH % 17.5 % (8-40); MCH 30.4 pg (25.7-33.7); MCHC 34.3 g/dl (32.0-36.0); MEAN CELL VOLUME 88.8 fl (80-96); MEAN PLT VOLUME 8.2 fl (7.5-11.1); NEUT % 74.8 % (42.8-82.8); PLATELET COUNT 255 10^3/uL (134-434); RBC 2.98 M/mm3 (3.60-5.2); RDW 15.3 % (11.6-15.6); WHITE BLOOD COUNT 8.7 K/mm3 (4.0-10.0)
[2022-12-17 14:48] VITALS: BP 111/75; PULSE 88; RESP 17; TEMP 98
== END 2022-12-17 17:55 | disposition home or self-care (01) | DRG 540 ==
LOC: JLDR 03:55 → J3W 22:18
PROVIDERS: ADMIT Obstetrics & Gynecology; ATTEND Obstetrics & Gynecology
PROC: 10D00Z1 Extraction of Products of Conception, Low, Open Approach (ICD-10-PCS; principal; 2022-12-14)
DX: O34.219 Maternal care for unspecified type scar from previous cesarean delivery (principal); O24.12 Pre-existing type 2 diabetes mellitus, in childbirth; O66.41 Failed attempted vaginal birth after previous cesarean delivery; O72.1 Other immediate postpartum hemorrhage; O42.02 Full-term premature rupture of membranes, onset of labor within 24 hours of rupture; O32.4XX0 Maternal care for high head at term, not applicable or unspecified; Z3A.38 38 weeks gestation of pregnancy; Z37.0 Single live birth
CPT/HCPCS: 36415; 36600; 80048; 82803; 85025; 85610; 85730; 86780; 86850; 86900; 86901; 88307-TC; C9803-CS; U0003; U0005